=== PATIENT | male | born 1970 | race Caucasian/White ===

== ENCOUNTER 2017-09-16 08:00 | Outpatient (CLI) | payer BC ==
[2017-09-16 13:20] LABS: ALBUMIN/GLOBULIN RATIO 1.7 (1.0-2.2); BILIRUBIN,TOTAL 1.5 mg/dL (0.2-1.0); BUN - BLOOD UREA NITROGEN 21 mg/dL (6-20); CALCIUM 9.6 mg/dL (8.5-10.3); CARBON DIOXIDE - CO2 26 mmol/L (21-32); CHLORIDE 100 mmol/L (101-111); CHOL/HDL RATIO 5.2 (<5.0); CHOLESTEROL 228 mg/dL; GFR - MDRD 80 (>89); GLUCOSE 105 mg/dL (70-100); HDL CHOLESTEROL 44 mg/dL; LDL/HDL RATIO 3.1 (<3.6); POTASSIUM 3.8 mmol/L (3.5-5.0); SODIUM 137 mmol/L (135-145); TOTAL PROTEIN 7.6 g/dL (6.7-8.2); TRIGLYCERIDES 238 mg/dL; VLDL CHOLESTEROL 48 mg/dL
== END 2017-09-16 08:01 | disposition home or self-care (01) ==
LOC: LAB.WCP 08:00
PROVIDERS: ATTEND Family Medicine
DX: Z00.00 Encounter for general adult medical examination without abnormal findings (principal); Z12.5 Encounter for screening for malignant neoplasm of prostate
CPT/HCPCS: 36415; 80053; 80061; 84153

== ENCOUNTER 2017-11-04 10:50 | Day surgery (SDC) | payer BC ==
[2017-11-04] MEDS ORDERED: LACTATED RINGERS 1,000 ML IV ONE (11:27)
[2017-11-04] MEDS ORDERED: fentaNYL 100 MCG/2 ML VIAL IVP ONE (12:17)
[2017-11-04] MEDS ORDERED: MIDAZOLAM 2 MG/2 ML VIAL IVP ONE (12:17)
[2017-11-04 13:13] VITALS: BP 128/82
== END 2017-11-04 10:51 | disposition home or self-care (01) ==
LOC: SDS 10:50
PROVIDERS: ATTEND Surgery
PROC: 0DJD8ZZ Inspection of Lower Intestinal Tract, Via Natural or Artificial Opening Endoscopic (ICD-10-PCS; principal; 2017-11-04 12:00)
DX: Z12.11 Encounter for screening for malignant neoplasm of colon (principal); Z80.0 Family history of malignant neoplasm of digestive organs
CPT/HCPCS: 45378; J7120

== ENCOUNTER 2018-01-23 07:20 | Outpatient (CLI) | payer BC ==
[2018-01-23 13:20] LABS: ALBUMIN 4.7 g/dL (3.2-5.5); ALBUMIN/GLOBULIN RATIO 1.7 (1.0-2.2); CALCIUM 9.2 mg/dL (8.5-10.3); TOTAL PROTEIN 7.4 g/dL (6.7-8.2)
[2018-01-23 13:34] LABS: HB2 TOTAL 15.9 g/dL; HEMOGLOBIN A1C 0.57 g/dL; HEMOGLOBIN A1C % 5.4 % (4.6-6.2)
[2018-01-23 13:37] LABS: H. PYLORIS ANTIGEN STL NEGATIVE (Negative)
[2018-01-23 13:40] LABS: THYROID STIMULATING HORMONE 2.79 uIU/mL (0.34-5.60)
[2018-01-23 13:41] LABS: FREE T4 (FREE THYROXINE) 0.76 ng/dL (0.58-1.64)
== END 2018-01-23 07:21 | disposition home or self-care (01) ==
LOC: LAB.WCP 07:20
PROVIDERS: ATTEND Family Medicine
DX: E78.5 Hyperlipidemia, unspecified (principal); E88.81 Metabolic syndrome and other insulin resistance; R10.13 Epigastric pain
CPT/HCPCS: 36415; 80053; 83036; 84439; 84443; 87338

== ENCOUNTER 2024-05-05 14:08 | Emergency (ER) | payer OTHER ==
[2024-05-05 14:26] VITALS: BP 158/79; O2SAT 99
--- NOTE | 2024-05-05 15:07 | XRAY Report ---
PROCEDURE: Elbow 3+V LT INDICATIONS: L elbow pain, s/p lifting box TECHNIQUE: 3 views of the elbow were acquired. COMPARISON: None. FINDINGS: Bones: No acute displaced fracture or dislocation. Soft tissues: No suspicious calcifications IMPRESSION: No acute radiographic abnormality. If there is high concern for further derangement, consider MRI mary beth luation. Reviewed by: Martín Basurto MD on 05/05/2024 3:06 PM PDT Approved by: Martín Basurto MD on 05/05/2024 3:06 PM PDT Station ID: [id number]
--- NOTE | 2024-05-05 15:08 | XRAY Report ---
PROCEDURE: Forearm LT INDICATIONS: L forearm pain s/p lifting box TECHNIQUE: 2 views of the forearm were acquired. COMPARISON: None. FINDINGS: Bones: No acute displaced fracture or dislocation Soft tissues: No suspicious calcifications. IMPRESSION: No acute radiographic abnormality. If there is high concern for further derangement, consider MRI evaluation. Reviewed by: Martín Basurto MD on 05/05/2024 3:06 PM PDT Approved by: Martín Basurto MD on 05/05/2024 3:06 PM PDT Station ID: [id number]
--- NOTE | 2024-05-05 15:47 | ED Physician Documentation ---
PD HPI UPPER EXT INJURY - Stated complaint Stated Complaint: L ARM PX - Chief complaint Chief Complaint: Ext Problem - History obtained from History obtained from: Patient, Family - History of Present Illness Location: Left, Elbow Pain level max: 0 Pain level now: 0 Improved by: Rest Worsened by: Moving Associated symptoms: No: Weakness, Numbness, Tingling, Swelling - Additonal information Additional information: Patient is a 53-year-old male who presents to the emergency department stating that he was at work today when he was lifting a box and felt a pain on the lateral aspect of the left elbow. Radiated down the forearm to the left wrist. Worse with movement, better with rest. No swelling or deformity. No numbness or tingling. Has not had similar symptoms previously. Has not taken anything for pain. Review of Systems Constitutional: denies: Fever, Chills Respiratory: denies: Cough Skin: denies: Rash Musculoskeletal: denies: Neck pain, Back pain Neurologic: denies: Headache PD PAST MEDICAL HISTORY - Past Medical History Past Medical History: Yes Cardiovascular: None Respiratory: None Neuro: None Endocrine/Autoimmune: None GI: Diverticulitis : None HEENT: None Psych: None Musculoskeletal: None Derm: None Other Past Medical History: DIVERTICULITISS.... - Past Surgical History Past Surgical History: Yes - Present Medications Home Medications: Ambulatory Orders Medication Instructions Recorded Confirmed No Known Home Medications 11/03/17 05/05/24 - Allergies Allergies/Adverse Reactions: Allergies Allergy/AdvReac Type Severity Reaction Status Date / Time No Known Drug Allergies Allergy Verified 05/05/24 14:19 - Social History Does the pt smoke?: No Smoking Status: Never smoker Does the pt drink ETOH?: No Does the pt have substance abuse?: No - Immunizations Immunizations are current?: Yes - POLST Patient has POLST: No PD ED PE NORMAL - Vitals Vital signs reviewed: Yes - General General: Alert and oriented X 3, No acute distress - HEENT HEENT: Moist mucous membranes - Neck Neck: Supple, no meningeal sign, No bony TTP - Cardiac Cardiac: RRR - Respiratory Respiratory: Clear bilaterally - Derm Derm: Warm and dry - Extremities Extremities: Other - Neuro Neuro: Alert and oriented X 3 - Psych Psych: Normal mood, Normal affect - Free text exam Free text exam: No tenderness to palpation over the left shoulder. Full range of the shoulder without pain. There is pain with supination and pronation of the left forearm. There is tenderness over the brachioradialis. Mild swelling over the proximal aspect of this. No joint effusion. No bony tenderness. Neurovascularly intact. Otherwise normal examination of the left upper extremity Results - Vitals Vitals: Vital Signs - 24 hr 05/05/24 14:11 Temperature 36.7 C Heart Rate 57 L Respiratory 15 Rate Blood Pressure 158/79 H O2 Saturation 99 Oxygen O2 Source Room air - Rads (name of study) L elbow xray Relevant Findings:: Final report received, See rad report L forearm xray Relevant Findings:: Final report received, See rad report PD Medical Decision Making - ED course Complexity details: reviewed results, re-evaluated patient, considered differential, d/w patient ED course: Patient with what appears to be a left elbow strain, likely brachioradialis muscle. No acute findings on x-ray. Placed in a sling for comfort. Can utilize Motrin and Tylenol as needed for pain at home. L&I form filled out. If patient is having pain in 1 week, he will be reassessed by his doctor. Patient counseled regarding signs and symptoms for which I believe and urgent re- evaluation would be necessary. Patient with good understanding of and agreement to plan and is comfortable going home at this time This document was made in part using voice recognition software. While efforts are made to proofread this document, sound alike and grammatical errors may occur. Departure - Departure Disposition: 01 Home, Self Care Clinical Impression: Strain of left elbow Qualifiers: Encounter type: initial encounter Qualified Code(s): S56.912A - Strain of unspecified muscles, fascia and tendons at forearm level, left arm, initial encounter Condition: Good Instructions: ED Sprain Elbow Comments: Please follow-up with your doctor in approximately 1 week. Please return if you worsen. I would use Motrin and Tylenol as needed for pain at home. Your x-rays do not show any acute abnormalities. It is likely that you have an injury to the muscles that surround the elbow. There is no evidence of fracture, dislocation or joint effusion. Forms: PCP List Discharge Date/Time: 05/05/24 16:01
== END 2024-05-05 16:01 | disposition home or self-care (01) ==
LOC: ED 14:08
DX: S53.402A Unspecified sprain of left elbow, initial encounter (principal); X50.9XXA Other and unspecified overexertion or strenuous movements or postures, initial encounter; Y99.0 Civilian activity done for income or pay
CPT/HCPCS: 1040M; 99283